=== PATIENT | male | born 1995 | race Caucasian/White ===

== ENCOUNTER 2020-03-08 06:54 | Emergency (ER) | payer BC ==
[2020-03-08] MEDS ORDERED: Acetaminophen 500 MG Tab PO ONE (07:32)
[2020-03-08] MEDS ORDERED: Prochlorperazine 10 MG/2 ML SDV IM ONE (07:32)
[2020-03-08] MEDS ORDERED: Prochlorperazine 10 MG/2 ML SDV IVPUSH ONE (07:34)
--- NOTE | 2020-03-08 07:42 | EDM.PDOC ---
ED HPI GENERAL MEDICAL PROBLEM - General Chief Complaint: General Stated Complaint: HEADACHE Time Seen by Provider: 03/08/20 07:06 Source of Information: Reports: Patient History Limitations: Reports: No Limitations - History of Present Illness INITIAL COMMENTS - FREE TEXT/NARRATIVE: This is a 25-year-old male with no past medical history presenting with a headache. He reports a 3-day history of a right-sided temporal headache, onset was gradual. Fluctuating since the onset but has never totally gone away. Rated as 8 out of 10. No history of a prior headache like this. Nothing makes it better or worse. Described as "pounding". Intermittently taking ibuprofen prior to arrival without much relief. No history of head trauma. Head Pain Score (Numeric/FACES): 5 - Related Data Allergies Allergy/AdvReac Type Severity Reaction Status Date / Time No Known Allergies Allergy Verified 03/08/20 07:09 Home Meds: Home Meds . [No Known Home Meds] 11/04/15 [History] Past Medical History - Past Health History Medical/Surgical History: Denies Medical/Surgical History - Infectious Disease History Infectious Disease History: Reports: None - Past Surgical History HEENT Surgical History: Reports: Other (See Below) Social & Family History - Family History Family Medical History: Noncontributory - Tobacco Use Smoking Status *Q: Current Every Day Smoker Years of Tobacco use: 2 Packs/Tins Daily: 0.2 - Recreational Drug Use Recreational Drug Use: No ED ROS GENERAL - Review of Systems Review Of Systems: See Below Constitutional: Denies: Fever, Chills, Night Sweats, Weight Loss HEENT: Denies: Ear Discharge, Ear Pain, Eye Discharge, Eye Pain, Hearing Loss, Throat Pain, Vertigo, Vision Change Respiratory: Denies: Shortness of Breath Cardiovascular: Denies: Chest Pain Endocrine: Denies: Fatigue GI/Abdominal: Denies: Abdominal Pain, Nausea, Vomiting : Denies: Flank Pain Musculoskeletal: Denies: Neck Pain, Back Pain Skin: Denies: Rash Neurological: Reports: Headache. Denies: Confusion, Dizziness, Numbness, Paresthesia, Pre-Existing Deficit, Seizure, Tingling, Trouble Speaking, Difficulty Walking, Weakness, Gait Disturbance Psychiatric: Denies: Confusion ED EXAM, GENERAL - Physical Exam Exam: See Below Free Text/Narrative:: Vital signs reviewed. Nursing notes reviewed. Constitutional: Awake, alert, non-distressed. Head: Normocephalic, atraumatic. Eyes: EOMI, conjunctiva normal, no discharge, no scleral icterus. Ears, Nose, Throat: External ears and nose normal, moist oral mucosa. No temporal artery tenderness. Neck: Supple, full range of motion Cardiovascular: 2+ radial pulse, capillary refill less than 2 seconds. Pulmonary: normal work of breathing, no accessory muscle use. Abdomen/GI: Soft, nontender, nondistended, no guarding or rigidity, no masses. Musculoskeletal: No deformities. Integumentary: Appropriate color for ethnicity, warm, dry, no pallor or jaundice, no rash. Neurologic: Awake, alert, and oriented x3. Cranial nerves II through XII intact. No facial droop or dysarthria. No temporal artery tenderness. Supple neck with normal range of motion. No pronator drift. Normal [id number] and avvt-md-eisl. No dysdiadochokinesia. 5/5 strength in all extremities. Sensation intact to light touch x4. Negative Romberg. Normal gait. Normal visual harmon, no field cuts. Able to sit, stand, and ambulate without assistance. Psychiatric: Appropriate mood and affect, normal thought process. Course - Vital Signs Text/Narrative:: Patiet hemodynamically stable, afebrile, well-appearing, looks nontoxic. Differential diagnosis includes but is not limited to: Temporal arteritis, mi graine headache, benign headache, tension headache, intracranial hemorrhage, BINDERY MANAGER mass, subarachnoid hemorrhage, AV malformation, meningitis, muscle strain/sprain, etc. Subarachnoid hemorrhage (SAH): A negative non-contrast head CT followed by a negative CT angiogram study has approximately 99.4% sensitivity for detecting aneurysmal SAH. Ischemic CVA: Normal neurologic examination, no suggestion of new hypodensity or vascular occlusion on CT imaging. Intracranial hemorrhage (subdural hematoma, epidural hematoma, intraparenchymal hemorrhage): No evidence on head CT. No history of trauma. No an ticoagulant/antiplatelet medication use. Cervical artery dissection: No evidence on angiographic study. No history of recent neck trauma, no facial droop, CN 2-12 intact, no slurred speech, dysphagia, dysarthria, dysphonia, dysmetria, dizziness, dysdiadochokinesia, facial or extremity numbness/weakness, normal gait, able to sit/stand without new need for assistance. Meningoencephalitis: Afebrile, supple neck (able to flex/extent/rotate normally), no photophobia, no altered mental status, non-toxic appearing, no meningitis sick contacts, not immunosuppressed. Temporal arteritis: No temporal artery tenderness, no visual changes, no claudication with mastication. BINDERY MANAGER abscess: Afebrile, not chronically immunosuppressed (HIV/AIDS). No abscess visualized on CT. Hypertensive encephalopathy or PRES: No evidence of altered mental status, GCS 15, not markedly hypertensive (SBP <200 mmHg), no focal neurologic deficits. Acute angle-closure glaucoma: No visual changes, pupils reactive. Cluster headache: not supported by HPI. Sinusitis: afebrile, no sinus tenderness, no purulent nasal drainage. Signs and symptoms most consistent with a migraine headache. [place] better after Tylenol and Compazine IV. The patient is able to ambulate safely and independently, is nontoxic-appearing, and can tolerate PO intake. Plan to treat symptomatically with [id number] Tylenol and Motrin. Discharge home, follow-up with primary medical clinic. Return to ED if worse or if new symptoms develop. Plan: Patient is stable to discharge home with outpatient primary care follow- up. Strict emergency department return precautions were provided, patient indicated understanding. All questions were answered prior to departure. Discharged in good condition. Last Recorded V/S: Last Vital Signs Temp 35.6 C L 03/08/20 07:10 Pulse 85 03/08/20 09:57 Resp 18 03/08/20 07:10 BP 161/96 H 03/08/20 09:57 Pulse Ox 96 03/08/20 09:57 - Orders/Labs/Meds Labs: Laboratory Tests 03/08/20 03/08/20 Range/Units 08:15 08:15 WBC 5.49 (4.0-11.0) K/uL RBC 5.38 (4.50-5.90) M/uL Hgb 17.5 H (13.0-17.0) g/dL Hct 49.2 (38.0-50.0) % MCV 91.4 (80.0-98.0) fL MCH 32.5 H (27.0-32.0) pg MCHC 35.6 (31.0-37.0) g/dL RDW Std Deviation 42.0 (28.0-62.0) fl RDW Coeff of Olivier 13 (11.0-15.0) % Plt Count 239 (150-400) K/uL MPV 9.40 (7.40-12.00) fL Neut % (Auto) 53.7 (48.0-80.0) % Lymph % (Auto) 35.3 (16.0-40.0) % Shelby % (Auto) 7.1 (0.0-15.0) % Eos % (Auto) 3.5 (0.0-7.0) % Baso % (Auto) 0.4 (0.0-1.5) % Neut # (Auto) 3.0 (1.4-5.7) K/uL Lymph # (Auto) 1.9 (0.6-2.4) K/uL Shelby # (Auto) 0.4 (0.0-0.8) K/uL Eos # (Auto) 0.2 (0.0-0.7) K/uL Baso # (Auto) 0.0 (0.0-0.1) K/uL Nucleated RBC % 0.0 /100WBC Nucleated RBCs # 0 K/uL Sodium 139 (136-148) mmol/L Potassium 4.3 (3.5-5.1) mmol/L Chloride 103 (98-107) mmol/L Carbon Dioxide 27.7 (21.0-32.0) mmol/L BUN 11 (7.0-18.0) mg/dL Creatinine 1.0 (0.8-1.3) mg/dL Est Cr Clr Drug Dosing 139.84 mL/min Estimated GFR (MDRD) > 60.0 ml/min Glucose 110 H (74-106) mg/dL Calcium 8.7 (8.5-10.1) mg/dL Meds: Medications Discontinued Medications Generic Name Dose Route Start Last Admin Trade Name Freq PRN Reason Stop Dose Admin Acetaminophen 1,000 mg 03/08/20 07:32 03/08/20 08:05 Tylenol Extra Strength PO 03/08/20 07:33 1,000 mg ONETIME ONE Administration Iopamidol 100 ml 03/08/20 09:05 03/08/20 09:06 Isovue Multipack-370 (76%) IVPUSH 03/08/20 09:06 100 ml ONETIME ONE Administration Prochlorperazine Edisylate 10 mg 03/08/20 07:32 03/08/20 07:58 Compazine IM 03/08/20 07:33 Not Given ONETIME ONE Prochlorperazine Edisylate 10 mg 03/08/20 07:34 03/08/20 08:06 Compazine IVPUSH 03/08/20 07:35 10 mg ONETIME ONE Administration Departure - Departure Time of Disposition: 09:47 Disposition: Home, Self-Care 01 Condition: Good Clinical Impression: Migraine Qualifiers: Migraine type: without aura Status migrainosus presence: without status migrainosus Intractability: not intractable Qualified Code(s): G43.009 - Migraine without aura, not intractable, without status migrainosus - Discharge Information *PRESCRIPTION DRUG MONITORING PROGRAM REVIEWED*: Not Applicable *COPY OF PRESCRIPTION DRUG MONITORING REPORT IN PATIENT BRANDI: Not Applicable Instructions: Migraine Headache Referrals: [facility] - Family Practice [Provider Group] - 2 Weeks (For follow-up of headaches) Forms: ED Department Discharge Additional Instructions: Thank you for choosing the [facility] emergency department in [place] for your medical needs today. It was a pleasure caring for you. You were seen in the emergency department for a headache. I am glad you are feeling better after some medications. The CT scans of your head and neck did not show any abnormality. I suspect that you have a migraine, certain type of headache. If this happens again you can take [id number] Tylenol or ibupro fen as directed on the package. If you keep having these headaches I would like for you to follow-up with either our family medicine clinic or our neurology clinic for reevaluation. If your symptoms return or worsen, or if you are concerned that you are getting worse, come back to the ER immediately. Please return the emergency department immediately if your symptoms worsen or if you feel worse. The following information is given to patients seen in the emergency department who are being discharged. This information is to outline your options for follow-up care. We provide all patients seen in our emergency department with a follow-up referral. The need for follow-up, as well as the timing and circumstances, are variable depending upon the specifics of your emergency department visit. If you don't have a primary care physician on staff, we will provide you with a referral. We always advise you to contact your personal physician following an emergency department visit to inform them of the circumstance of the visit and for follow-up with them and/or the need for any referrals to a consulting specialist. The emergency department will also refer you to a specialist when appropriate. This referral assures that you have the opportunity for follow-up care with a specialist. All of these measure are taken in an effort to provide you with optimal care, which includes your follow-up. Under all circumstances we always encourage you to contact your private physician who remains a resource for coordinating your care. When calling for follow-up care, please make the office aware that this follow-up is from your recent emergency room visit. If for any reason you are refused follow-up, please contact the [facility] Emergency Department at and asked to speak to the emergency department charge nurse. If you do not have a primary care physician that is caring for you, you can contact these clinics below to set up an appointment to establish care: [facility] [address] [place] [address] [id number] [address] Sepsis Event Note (ED) - Evaluation Sepsis Screening Result: No Definite Risk - Focused Exam Vital Signs: Vital Signs Temp Pulse Resp BP Pulse Ox 03/08/20 09:57 85 161/96 H 96 03/08/20 07:10 35.6 C L 81 18 158/107 H 99
[2020-03-08 08:36] LABS: BLOOD UREA NITROGEN,BUN 11 mg/dL (7.0-18.0); CARBON DIOXIDE,CO2 27.7 mmol/L (21.0-32.0); CHLORIDE,CL 103 mmol/L (98-107); GLUCOSE RANDOM 110 mg/dL (74-106); POTASSIUM,K 4.3 mmol/L (3.5-5.1); SODIUM,NA 139 mmol/L (136-148)
[2020-03-08] MEDS ORDERED: Iopamidol 755 MG/ML 200 ML Multipack Bottle IVPUSH ONE (09:05)
--- NOTE | 2020-03-08 09:39 | CT ---
CT angiogram of brain Technique: Multiple axial sections through the brain were obtained. Study was obtained utilizing IV contrast in the arterial phase. Multiple MIP images were obtained. Findings: Distal vertebral arteries and basilar artery are patent. Both posterior cerebral arteries are patent. Carotid siphon is patent. Middle cerebral arteries and anterior cerebral arteries are patent. No focal stenosis is seen. No discrete aneurysm is identified. Impression: 1. No abnormality is appreciated on CT angiogram of the brain. Diagnostic code #1 This report was dictated in MDT
--- NOTE | 2020-03-08 09:40 | CT ---
CT angiogram of neck Technique: Multiple axial sections through the neck were obtained. Intravenous contrast was utilized. Study performed as a CT angiogram neck protocol. Multiple MIP images were obtained. Findings: Mucosal thickening is noted within both inferior maxillary sinuses. Vertebral arteries are patent throughout the neck. No focal stenosis is seen. Common carotid arteries are patent. Carotid bulb as well as proximal external carotid arteries and internal carotid arteries are patent. No focal stenosis is seen. No occlusion is identified. Impression: 1. Findings which are felt compatible with chronic sinusitis. 2. No additional abnormality is identified on CT angiogram of the neck. Diagnostic code #2 This report was dictated in MDT
[2020-03-08 09:58] VITALS: BP 161/96; PULSE 85
== END 2020-03-08 09:57 | disposition home or self-care (01) ==
LOC: MW.ED 06:54
DX: G43.009 Migraine without aura, not intractable, without status migrainosus (principal); F17.210 Nicotine dependence, cigarettes, uncomplicated
CPT/HCPCS: 36415; 70496; 70498; 80048; 85025; 96374; 99284; A9270; J0780; Q9967